=== PATIENT | female | born 1950 | race Caucasian/White ===

== ENCOUNTER 2017-02-20 13:09 | Outpatient (CLI) | payer OTHER ==
--- NOTE | 2017-02-20 13:50 | DIAGNOSTIC IMAGING REPORT ---
PROCEDURE: DEXA BONE DENSITY STUDY CLINICAL INDICATION: SCREENING FOR OSTEOPOROSIS COMPARISON: None. FINDINGS: LUMBAR SPINE: Bone mineral density 1.124 g/cm2, T score 0.7 normal LEFT HIP: Bone mineral density 1.134 g/cm2, T score 1.6 normal LEFT FEMORAL NECK: Bone mineral density 0.983 g/cm2, T score 1.2 normal FRACTURE RISK CALCULATION ( when applicable): 10-year fracture risk of a major osteoporotic fracture and of a hip fracture not reported because all T-scores at or above -1.0 (T score greater or equal to -1.0 to: NORMAL) (T score from -1.1 to -2.4: OSTEOPENIA) (T score ess than or equal to -2.5: OSTEOPOROSIS) IMPRESSION: 1. Normal spine hip and femoral neck
--- NOTE | 2017-02-20 14:23 | DIAGNOSTIC IMAGING REPORT ---
PROCEDURE: MG BILATERAL SCREENING W/CAD INDICATION: SCREENING TECHNIQUE: Bilateral CC and MLO digital views. COMPARISON: Compared to 01/19/2016, 01/12/2015, and 01/13/2014. FINDINGS: Computer-aided detection applied. Mildly dense. No change. IMPRESSION: 1. Negative mammogram. RESULT CODE: 1- Negative. A. A negative report should not delay biopsy if a dominant or clinically suspicious mass is present. 10-15% of cancers are not identified by x-ray. B. A negative report may reinforce clinical impression. C. Adenosis and dense breasts may obscure an underlying neoplasm. D. False positive reports average 6-10%. E.. A yearly screening mammogram is recommended. A reminder letter will be scheduled.
== END 2017-02-20 23:00 ==
LOC: MAM SRH 13:09
DX: Z13.820 Encounter for screening for osteoporosis (principal); Z12.31 Encounter for screening mammogram for malignant neoplasm of breast

== ENCOUNTER 2017-03-02 20:26 | Emergency (ER) | payer OTHER ==
--- NOTE | 2017-03-02 23:20 | ED CLINICAL REPORT ---
Clinical Report - Physicians/Mid Levels [facility] [address] [place] [address] 03/02/2017 20:26 Patient: MEGHNA ESTEVEZ Time Seen: 20:40. Arrived- By private vehicle. Historian- patient and family. HISTORY OF PRESENT ILLNESS Chief Complaint: CHEST PAIN. At its maximum, severity described as moderate. When seen in the E.D., severity described as moderate. Modifying factors- worsened by cough and deep breaths. Not relieved by anything. It is described as located in the central chest area and radiating (back). No nausea, vomiting, difficulty breathing or diaphoresis. Similar symptoms previously: Many times. Recent medical care: Not recently seen/assessed. REVIEW OF SYSTEMS No fever, chills, cough, pedal edema or calf pain. All systems otherwise negative, except as recorded above. PAST HISTORY Esphageal spam History of pulmonary resection for cancer. Medications: Calcium 600 + D Oral. Multivitamin & Mineral Oral. Omeprazole Oral 10 mg, daily. Acyclovir Oral, daily. Allergies: No Known Drug Allergy. SOCIAL HISTORY Never smoker. Occasional alcohol use. No drug use. ADDITIONAL NOTES The nursing notes have been reviewed. PHYSICAL EXAM Vital Signs: 03/02/2017 20:34 BP: 123/64. HR: 62. RR: 25. O2 saturation: 100%. Temp: 97.2 F. Pain level now: 8/10. Have been reviewed. Blood pressure normal. Heart rate normal. Tachypneic. Temperature normal. Oxygen saturation normal. Appearance: Alert. Oriented X3. Appears to be in pain. Eyes: Eyes normal inspection. ENT: Pharynx normal. Neck: Normal inspection. CVS: Normal heart rate and rhythm. Heart sounds normal. Respiratory: No respiratory distress. Breath sounds normal. Chest nontender. Back: Moderate soft-tissue tenderness in the left mid thoracic area. No vertebral point tenderness. Skin: Skin warm and dry. Normal skin color. Extremities: No calf tenderness. No lower extremity edema. Neuro: Oriented X 3. LABS, X-RAYS, AND EKG Chest X-ray: No acute disease. Borderline cardiomegaly. No infiltrate. (Prior L lobectomy). Views: AP. Technique: good. The X-rays were independently viewed by me and interpreted contemporaneously by me. A comparison with prior films reveals that the findings are unchanged. Interpretation time: 22:18. Laboratory Tests: CBC w Diff: (NICK: 03/02/2017 20:58) ( [facility]13) Final results Test Result Flag Units (Reference) WHITE BLOOD COUNT 10.6 K/uL (4.5-11.5) RED BLOOD COUNT 3.86 L M/uL (4.00-5.20) HEMOGLOBIN 12.0 gm/dL (12.0-16.0) HEMATOCRIT 35.7 L % (36.0-46.0) MEAN CELL VOLUME 92 fL (80-100) MEAN CORPUSCULAR HGB 31 pg (26-34) MEAN CORPUSCULAR HGB CONC 34 g/dL (31-37) RED CELL DISTRIBUTION WIDTH 13.4 % (11.6-14.8) PLATELET COUNT 205 K/uL (150-400) NEUTROPHIL % 81.8 H % (50-75) LYMPH % 10.0 L % (25-40) MONO % 6.9 % (3-14) EOSINOPHIL % 1.0 % (0-4) BASOPHIL % 0.3 % (0-2) PT with INR: (NICK: 03/02/2017 20:58) ( [facility] 21:17) Final results Test Result Flag Units (Reference) INR 0.9 (0.8-1.2) Low Intensity Therapy: INR 1.5-2.0 PT range 18.5-23.1Mod.Intensity Therapy: INR 2.0-3.0 PT range 23.1-31.5High Intensity Therapy: INR 2.5-3.5 PT range 27.4-35.5High Intensity Therapy 2: INR 3.0-4.0 PT range 31.5-39.3 D-DIMER QUANTITATIVE 0.31 ug/mLFEU (0.27-0.52) The primary value of this quantitative assay relates toits negative predictive value (i.e. exclusion) of pulmonaryembolism/deep vein thrombosis/DIC.Elevated levels of d-dimer may also occur with:, age, cancer, inflammation, liver disease,post-op, infection, hematoma, coronary disease, peripheralarteriopathy, bleeding disorders and thrombolytic treatment.Results should be correlated with other clinical andradiological data.Testing Methodology: Latex Immunoassay BNP: (NICK: 03/02/2017 20:58) ( [facility] 03/02/2017 21:31) Final results Test Result Flag Units (Reference) B-TYPE NATRIURETIC PEPTIDE 21.8 pg/ml (5-100) CHEM 13 PANEL: (NICK: 03/02/2017 20:58) ( [facility] 03/02/2017 21:25) Final results Test Result Flag Units (Reference) GLUCOSE 156 H mg/dL (70-110) BUN 23 H mg/dL (7-18) CREATININE 1.0 mg/dL (0.6-1.3) Estimated GFR 59.14 mL/min Estimated GFR- >60 mL/min Note: Persistent reduction over 3 months in eGFR<60 mL/min/1.73 m2 defines CKD. Patients with eGFR values>=60 mL/min/1.73 m2 may also have CKD if evidence ofpersistent proteinuria. Additional information may be foundat www.kidney.org. SODIUM 140 mmol/L (136-145) POTASSIUM 3.5 mmol/L (3.5-5.1) CHLORIDE 104 mmol/L (98-107) CARBON DIOXIDE 24 mmol/L (21-32) CALCIUM 9.1 mg/dL (8.5-10.1) TOTAL PROTEIN 7.2 g/dL (6.4-8.2) ALBUMIN 3.8 g/dL (3.3-5.0) BILIRUBIN, TOTAL 0.4 mg/dL (0.0-1.0) ALKALINE PHOSPHATASE 73 U/L (46-116) AST (SGOT) 32 U/L (15-37) ALT (SGPT) 32 U/L (12-78) MAGNESIUM 1.8 mg/dL (1.8-2.4) CPK 99 U/L (24-260) TROPONIN I <0.05 L ng/mL (0.00-1.5) TROPONIN REFERENCE RANGE:<0.1 NEGATIVE0.1-1.5 INDETERMINANT>1.5 POSITIVE . PROGRESS AND PROCEDURES Course of Care: 21:41 03/02/17. Care transferred to Dr Diego due to end of shift. Pt and Dr Diego are aware. /Berlin Son MD. Disposition: Discharged home in good and improved condition. Condition: good. CLINICAL IMPRESSION Muscle strain of the mid back. INSTRUCTIONS No lifting greater than 10 lbs until well. Your Current Medications: CONTINUE TAKING THE FOLLOWING MEDICATIONS: Acyclovir Oral : daily. Calcium 600 + D Oral. Multivitamin & Mineral Oral. Omeprazole Oral : 10 mg daily. Prescription Medications: Diclofenac 50 mg tablets: take 1 tablet orally every 6 hours as needed for pain or stiffness. Dispense thirty (30). No refill. Lidoderm 5% patch Apply BID Disp #30 No refills. Follow-up: Follow up with your doctor in about three days. Call for an appointment. Screening today revealed the patient's blood pressure to be in the normal range. (Electronically signed by Wiley Diego Dr. 03/03/2017 4:40)
--- NOTE | 2017-03-02 23:20 | ED CLINICAL REPORT ---
Clinical Report - Physicians/Mid Levels [facility] [address] [place] [address] 03/02/2017 20:26 Patient: MEGHNA ESTEVEZ Time Seen: 20:40. Arrived- By private vehicle. Historian- patient and family. HISTORY OF PRESENT ILLNESS Chief Complaint: CHEST PAIN. At its maximum, severity described as moderate. When seen in the E.D., severity described as moderate. Modifying factors- worsened by cough and deep breaths. Not relieved by anything. It is described as located in the central chest area and radiating (back). No nausea, vomiting, difficulty breathing or diaphoresis. Similar symptoms previously: Many times. Recent medical care: Not recently seen/assessed. REVIEW OF SYSTEMS No fever, chills, cough, pedal edema or calf pain. All systems otherwise negative, except as recorded above. PAST HISTORY Esphageal spam History of pulmonary resection for cancer. Medications: Calcium 600 + D Oral. Multivitamin & Mineral Oral. Omeprazole Oral 10 mg, daily. Acyclovir Oral, daily. Allergies: No Known Drug Allergy. SOCIAL HISTORY Never smoker. Occasional alcohol use. No drug use. ADDITIONAL NOTES The nursing notes have been reviewed. PHYSICAL EXAM Vital Signs: 03/02/2017 20:34 BP: 123/64. HR: 62. RR: 25. O2 saturation: 100%. Temp: 97.2 F. Pain level now: 8/10. Have been reviewed. Blood pressure normal. Heart rate normal. Tachypneic. Temperature normal. Oxygen saturation normal. Appearance: Alert. Oriented X3. Appears to be in pain. Eyes: Eyes normal inspection. ENT: Pharynx normal. Neck: Normal inspection. CVS: Normal heart rate and rhythm. Heart sounds normal. Respiratory: No respiratory distress. Breath sounds normal. Chest nontender. Back: Moderate soft-tissue tenderness in the left mid thoracic area. No vertebral point tenderness. Skin: Skin warm and dry. Normal skin color. Extremities: No calf tenderness. No lower extremity edema. Neuro: Oriented X 3. LABS, X-RAYS, AND EKG Chest X-ray: No acute disease. Borderline cardiomegaly. No infiltrate. (Prior L lobectomy). Views: AP. Technique: good. The X-rays were independently viewed by me and interpreted contemporaneously by me. A comparison with prior films reveals that the findings are unchanged. Interpretation time: 22:18. Laboratory Tests: CBC w Diff: (NICK: 03/02/2017 20:58) ( [facility] 03/02/2017 21:13) Final results Test Result Flag Units (Reference) WHITE BLOOD COUNT 10.6 K/uL (4.5-11.5) RED BLOOD COUNT 3.86 L M/uL (4.00-5.20) HEMOGLOBIN 12.0 gm/dL (12.0-16.0) HEMATOCRIT 35.7 L % (36.0-46.0) MEAN CELL VOLUME 92 fL (80-100) MEAN CORPUSCULAR HGB 31 pg (26-34) MEAN CORPUSCULAR HGB CONC 34 g/dL (31-37) RED CELL DISTRIBUTION WIDTH 13.4 % (11.6-14.8) PLATELET COUNT 205 K/uL (150-400) NEUTROPHIL % 81.8 H % (50-75) LYMPH % 10.0 L % (25-40) MONO % 6.9 % (3-14) EOSINOPHIL % 1.0 % (0-4) BASOPHIL % 0.3 % (0-2) PT with INR: (NICK: 03/02/2017 20:58) ( [facility] 03/02/2017 21:17) Final results Test Result Flag Units (Reference) INR 0.9 (0.8-1.2) Low Intensity Therapy: INR 1.5-2.0 PT range 18.5-23.1Mod.Intensity Therapy: INR 2.0-3.0 PT range 23.1-31.5High Intensity Therapy: INR 2.5-3.5 PT range 27.4-35.5High Intensity Therapy 2: INR 3.0-4.0 PT range 31.5-39.3 D-DIMER QUANTITATIVE 0.31 ug/mLFEU (0.27-0.52) The primary value of this quantitative assay relates toits negative predictive value (i.e. exclusion) of pulmonaryembolism/deep vein thrombosis/DIC.Elevated levels of d-dimer may also occur with:, age, cancer, inflammation, liver disease,post-op, infection, hematoma, coronary disease, peripheralarteriopathy, bleeding disorders and thrombolytic treatment.Results should be correlated with other clinical andradiological data.Testing Methodology: Latex Immunoassay BNP: (NICK: 03/02/2017 20:58) ( [facility] 03/02/2017 21:31) Final results Test Result Flag Units (Reference) B-TYPE NATRIURETIC PEPTIDE 21.8 pg/ml (5-100) CHEM 13 PANEL: (NICK: 03/02/2017 20:58) ( [facility] 03/02/2017 21:25) Final results Test Result Flag Units (Reference) GLUCOSE 156 H mg/dL (70-110) BUN 23 H mg/dL (7-18) CREATININE 1.0 mg/dL (0.6-1.3) Estimated GFR 59.14 mL/min Estimated GFR- >60 mL/min Note: Persistent reduction over 3 months in eGFR<60 mL/min/1.73 m2 defines CKD. Patients with eGFR values>=60 mL/min/1.73 m2 may also have CKD if evidence ofpersistent proteinuria. Additional information may be foundat www.kidney.org. SODIUM 140 mmol/L (136-145) POTASSIUM 3.5 mmol/L (3.5-5.1) CHLORIDE 104 mmol/L (98-107) CARBON DIOXIDE 24 mmol/L (21-32) CALCIUM 9.1 mg/dL (8.5-10.1) TOTAL PROTEIN 7.2 g/dL (6.4-8.2) ALBUMIN 3.8 g/dL (3.3-5.0) BILIRUBIN, TOTAL 0.4 mg/dL (0.0-1.0) ALKALINE PHOSPHATASE 73 U/L (46-116) AST (SGOT) 32 U/L (15-37) ALT (SGPT) 32 U/L (12-78) MAGNESIUM 1.8 mg/dL (1.8-2.4) CPK 99 U/L (24-260) TROPONIN I <0.05 L ng/mL (0.00-1.5) TROPONIN REFERENCE RANGE:<0.1 NEGATIVE0.1-1.5 INDETERMINANT>1.5 POSITIVE . PROGRESS AND PROCEDURES Course of Care: 21:41 03/02/17. Care transferred to Dr Diego due to end of shift. Pt and Dr Diego are aware. /Berlin Son MD. Disposition: Discharged home in good and improved condition. Condition: good. CLINICAL IMPRESSION Muscle strain of the mid back. INSTRUCTIONS No lifting greater than 10 lbs until well. Your Current Medications: CONTINUE TAKING THE FOLLOWING MEDICATIONS: Acyclovir Oral : daily. Calcium 600 + D Oral. Multivitamin & Mineral Oral. Omeprazole Oral : 10 mg daily. Prescription Medications: Diclofenac 50 mg tablets: take 1 tablet orally every 6 hours as needed for pain or stiffness. Dispense thirty (30). No refill. Lidoderm 5% patch Apply BID Disp #30 No refills. Follow-up: Follow up with your doctor in about three days. Call for an appointment. Screening today revealed the patient's blood pressure to be in the normal range. (Electronically signed by Wiley Diego Dr. 03/03/2017 4:40)
--- NOTE | 2017-03-02 23:21 | ED ORDER SUMMARY ---
..... Patient: MEGHNA ESTEVEZ OrderSheet [facility] VisitID: [id number] [place] [address] 66y, F Registration Date/Time: 03/02/2017 ORDER SHEET Weight: Allergies: No Known Drug Allergy GENERAL ORDERS: Chest 1V Urgent (20:47 03/02/2017 Suma PAUL) (Ack 20:54 Reshma) (20:56 RFay) Atmospheric Technician (Continuous) (20:48 03/02/2017 Suma PAUL) (21:49 CHagerty ER Costume Seamstress) PT with INR Urgent (20:48 03/02/2017 Suma PAUL) (Ack 20:54 Reshma) (22:40 CHagerty ER Costume Seamstress) (22:40 JQuivey R.N.) Cardiac Panel Stat (20:48 03/02/2017 Suma PAUL) (Ack 20:54 Reshma) (22:40 CHagerty ER Costume Seamstress) (22:40 JQuivey R.N.) BNP Urgent (20:48 03/02/2017 Suma PAUL) (Ack 20:54 Reshma) (22:40 CHagerty ER Costume Seamstress) (22:40 JQuivey R.N.) D-Dimer Urgent (20:48 03/02/2017 Suma PAUL) (Ack 20:54 Reshma) (22:40 CHagerty ER Costume Seamstress) (22:40 JQuivey R.N.) Oxygen (2 L/min) (NC) (20:48 03/02/2017 Suma PAUL) (21:50 CHagerty ER Costume Seamstress) Pulse oximeter (20:48 03/02/2017 Suma PAUL) (21:49 CHagerty ER Costume Seamstress) EKG - ER Stat (20:48 03/02/2017 Suma PAUL) (20:49 DDavis R.N.) MEDICATION ORDERS: NitroGLYCERIN SL 0.4 mg (NOW) (20:46 03/02/2017 Suma PAUL) (21:04 SSambou R.N.) Aspirin PO 325 mg (NOW) (20:53 03/02/2017 Suma PAUL) (21:07 SSambou R.N.) IV FLUIDS: Morphine IV 2 mg + 2 mg (NOW) (20:47 03/02/2017 Suma PAUL) (21:06 Tevin Winter) IV Saline Lock (20:48 03/02/2017 Suma PAUL) (21:07 Tevin Slade.Thien) Toradol IV 30 mg (NOW) (23:01 03/02/2017 Dejah Keating) ORDER SHEET NOTES: [Electronically signed by Sheriff Moy Jarrett (23:53 03/02/2017)] [Electronically signed by Wiley Diego Dr. (04:40 03/03/2017)] [Electronically locked/signed by Sheriff Moy Jarrett (23:53 03/02/2017)]
--- NOTE | 2017-03-02 23:21 | ED NURSING NOTES ---
Clinical Report - [facility] [address] [place] [address] 03/02/2017 20:26 Patient: MEGHNA ESTEVEZ TRIAGE Triage time 20:34. Chief Complaint: CHEST PAIN. --20:41 Sheriff Jarrett R.N. 20:34 03/02/17. BP: 123/64. HR: 62. RR: 25. O2 saturation: 100%. Temp: 97.2 F. Pain level now: 05/16. --20:41 Sheriff Jarrett R.N. Medications Acyclovir Oral, daily. --20:36 Sheriff Jarrett R.N. Omeprazole Oral 10 mg, daily. --20:36 Sheriff Jarrett R.N. Multivitamin & Mineral Oral. --20:37 Sheriff Jarrett R.N. Calcium 600 + D Oral. --20:37 Sheriff Jarrett R.N. Allergies No Known Drug Allergy. --20:37 Sheriff Jarertt R.N. History Arrived by private vehicle, and accompanied by family. Onset. (2 1/2 hours ago). ( Took nitroglycerin 0.4 mg PO x 4.). PAST MEDICAL HX: Immunizations: up-to-date. Denies current : Menopause. SURGERY HX: Cholecystectomy. Had hysterectomy. ( Left lower lobe lobectomy.). SOCIAL HX: Never smoker. Occasional alcohol use. No drug use. No infectious disease exposure. FALL RISK ASSESSMENT: Fall risk assessment completed. No fall risk identified. NUTRITIONAL RISK ASSESSMENT: The nutritional risk assessment revealed no deficiencies. FUNCTIONAL ASSESSMENT: Functional assessment: no impairments noted. LEARNING NEEDS ASSESSMENT: The learning needs assessment revealed no barriers. --20:41 Sheriff Jarrett R.N. PROBLEMS: Unstable Angina. Chest Pain. Lung Cancer. --20:37 Sheriff Jarrett R.N. Interventions ID band on patient. --20:41 Sheriff Jarrett R.N. PHYSICAL ASSESSMENT Ambulatory to room. Patient gowned. GENERAL / NEURO / PSYCH: Alert. Oriented X 4. Appears in pain and anxious. HEENT: Mucous membranes are pink. RESPIRATORY: Respirations not labored. CVS: Pulses within normal limits. Capillary refill less than 2 seconds. SKIN: Skin is warm and dry. Normal skin turgor. --20:41 Sheriff Jarrett R.N. NURSING PROGRESS NOTES Head of bed elevated. Two patient identifiers checked. Call light placed in reach. Side rails up x 2. Bed placed in lowest position. Brakes of bed on. --20:41 Sheriff Jarrett R.N. 20:46 03/02/17. BP: 107/50 (regular adult cuff) taken on the left arm, via an automated monitor, while sitting. --20:46 Sheriff Jarrett R.N. 20:46 03/02/17. BP: 101/65 (regular adult cuff) taken on the right arm, via an automated monitor, while sitting. --20:47 Sheriff Jarrett R.N. EKG time: (2039). EKG was ordered, performed by a tech and shown to the ED physician. --20:56 Chino Perdomo, ER Medical Educator 20:52 03/02/2017 Site #2 started via IV in the right antecubital space with an 20g angiocath, with aseptic technique and good blood return; one attempt. Blood drawn: rainbow set. Labeled in the presence of the patient. Saline lock flushed with 10 mL saline. --21:07 Sheriff Jarrett R.N. 21:04 03/02/2017 Nitroglycerin SL 0.4 mg given. Allergies verified and confirmed 5 rights. --21:04 Sheriff Jarrett R.N. 21:06 03/02/2017 Site #1 started via IV in the right with an 20g angiocath, with aseptic technique and good blood return; one attempt. Blood drawn: rainbow set. Labeled in the presence of the patient. Saline lock flushed with 10 mL saline. --21:06 Sheriff Jarrett R.N. 21:06 03/02/2017 Morphine IVP 2 mg given. via site #1. IV patency established. IV site checked: no pain, redness, or swelling. IV flushed thoroughly pre- and post-medication administration. IVP given by RN. --21:06 Sheriff Jarrett R.N. 21:07 03/02/2017 Aspirin PO 325 mg given. Allergies verified and confirmed 5 rights. --21:07 Sheriff Jarrett R.N. ( 2100: Report received from HAI Spangler for his lunch break.). --21:25 Cory Hunter R.N. ( Patient states that her chest pain is lower since she was given pain medications. She states that she "had 4 nitro" just before she arrived.). --21:28 Cory Hunter R.N. ( Report given to HAI Spangler (he returned from lunch).). --21:34 Cory Hunter R.N. DISPOSITION / DISCHARGE Condition at departure: stable. No learning barriers present. Discharge instructions provided and reviewed with the patient. Reviewed medication(s) side effects, precautions, dosing and course information. Prescription(s) given to the patient. Work note given. Patient verbalized understanding. Written instructions provided in Tajik. The patient was discharged by the physician. She was discharged home and accompanied by spouse. She left the Emergency Department ambulatory and via private vehicle. Spouse driving. --23:53 Sheriff Jarrett R.N. 23:40 03/02/17. BP: 115/49. HR: 55. RR: 18. O2 saturation: 99%. Temp: 98.4 F. Pain level now: 11/16. --23:53 Sheriff Jarrett R.N. Locked/Released at 03/02/2017 23:53 by Sheriff Jarrett R.N.
--- NOTE | 2017-03-02 23:21 | ED ORDER SUMMARY ---
..... Patient: MEGHNA ESTEVEZ OrderSheet [facility] VisitID: [id number] [place] [address] 66y, F Registration Date/Time: 03/02/2017 ORDER SHEET Weight: Allergies: No Known Drug Allergy GENERAL ORDERS: Chest 1V Urgent (20:47 03/02/2017 Suma PAUL) (Ack 20:54 Reshma) (20:56 RFay) Brake Reliner (Continuous) (20:48 03/02/2017 Suma PAUL) (21:49 CHagerty ER Typesetter Apprentice) PT with INR Urgent (20:48 03/02/2017 Suma PAUL) (Ack 20:54 Reshma) (22:40 CHagerty ER Typesetter Apprentice) (22:40 JQuivey R.N.) Cardiac Panel Stat (20:48 03/02/2017 Suma PAUL) (Ack 20:54 Reshma) (22:40 CHagerty ER Typesetter Apprentice) (22:40 JQuivey R.N.) BNP Urgent (20:48 03/02/2017 Suma PAUL) (Ack 20:54 Reshma) (22:40 CHagerty ER Typesetter Apprentice) (22:40 JQuivey R.N.) D-Dimer Urgent (20:48 03/02/2017 Suma PAUL) (Ack 20:54 Reshma) (22:40 CHagerty ER Typesetter Apprentice) (22:40 JQuivey R.N.) Oxygen (2 L/min) (NC) (20:48 03/02/2017 Suma PAUL) (21:50 CHagerty ER Typesetter Apprentice) Pulse oximeter (20:48 03/02/2017 Suma PAUL) (21:49 CHagerty ER Typesetter Apprentice) EKG - ER Stat (20:48 03/02/2017 Suma PAUL) (20:49 DDavis R.N.) MEDICATION ORDERS: NitroGLYCERIN SL 0.4 mg (NOW) (20:46 03/02/2017 Suma PAUL) (21:04 SSambou R.N.) Aspirin PO 325 mg (NOW) (20:53 03/02/2017 Suma PAUL) (21:07 SSambou R.N.) IV FLUIDS: Morphine IV 2 mg + 2 mg (NOW) (20:47 03/02/2017 Suma PAUL) (21:06 Tevin Winter) IV Saline Lock (20:48 03/02/2017 Suma PAUL) (21:07 Tevin Slade.Thien) Toradol IV 30 mg (NOW) (23:01 03/02/2017 Dejah Keating) ORDER SHEET NOTES: [Electronically signed by Sheriff Moy Jarrett (23:53 03/02/2017)] [Electronically signed by Wiley Diego Dr. (04:40 03/03/2017)] [Electronically locked/signed by Sheriff Moy Jarrett (23:53 03/02/2017)]
--- NOTE | 2017-03-03 04:41 | ED MED RECONCILIATION SUMMARY ---
Patient: MEGHNA ESTEVEZ Medication Reconciliation Report [facility] VisitID: [id number] [place] [address] 66y, F Registration Date/Time: 03/02/2017 Weight: (not available) Height/Length: (not available) BMI: (not available) ALLERGIES: No Known Drug Allergy The patient's Home Medications are listed below: CONTINUE TAKING THE FOLLOWING MEDICATIONS: Acyclovir Oral, daily Calcium 600 + D Oral Multivitamin & Mineral Oral Omeprazole Oral 10 mg, daily The source(s) of the original Home Medication information: Not obtained. The following Medications were given to the patient in the Emergency Department: Nitroglycerin [SL] SL 0.4 mg, administered: 03/02/2017 9:04:00 PM Morphine [IVP] IVP 2 mg, administered: 03/02/2017 9:06:00 PM Aspirin [PO] PO 325 mg, administered: 03/02/2017 9:07:00 PM The following Medications were prescribed to the patient: Lidoderm 5% patchApply BIDDisp #30No refills. -- Wiley Diego Dr. Diclofenac 50 mg tablets: take 1 tablet orally every 6 hours as needed for pain or stiffness. Dispense thirty (30). No refill. -- Wiley Diego Dr.
--- NOTE | 2017-03-03 04:41 | ED MAR SUMMARY ---
..... Medication Administration Record [facility] [address] [place] [address] Patient: MEGHNA ESTEVEZ Visit ID: [id number] 66y, F Weight: (not available) Height/Length: (not available) BMI: (not available) ALLERGIES: No Known Drug Allergy Given 21:04 03/02/2017 Sheriff Luiza RLuigiNLuigi Medication Administered: NITROGLYCERIN [SL], Dose: 0.4 mg SL. Medication Ordered: NitroGLYCERIN SL 0.4 mg (NOW). Given 21:06 03/02/2017 Sheriff Luiza RLuigiNLuigi Medication Administered: MORPHINE [IVP], Dose: 2 mg IVP, Site: #1 right. Medication Ordered: Morphine IV 2 mg + 2 mg (NOW). Given 21:07 03/02/2017 Sheriff Luiza RLuigiN. Medication Administered: ASPIRIN [PO], Dose: 325 mg PO. Medication Ordered: Aspirin PO 325 mg (NOW).
--- NOTE | 2017-03-03 04:41 | ED MED RECONCILIATION SUMMARY ---
Patient: MEGHNA ESTEVEZ Medication Reconciliation Report [facility] VisitID: [id number] [place] [address] 66y, F Registration Date/Time: 03/02/2017 Weight: (not available) Height/Length: (not available) BMI: (not available) ALLERGIES: No Known Drug Allergy The patient's Home Medications are listed below: CONTINUE TAKING THE FOLLOWING MEDICATIONS: Acyclovir Oral, daily Calcium 600 + D Oral Multivitamin & Mineral Oral Omeprazole Oral 10 mg, daily The source(s) of the original Home Medication information: Not obtained. The following Medications were given to the patient in the Emergency Department: Nitroglycerin [SL] SL 0.4 mg, administered: 03/02/2017 9:04:00 PM Morphine [IVP] IVP 2 mg, administered: 03/02/2017 9:06:00 PM Aspirin [PO] PO 325 mg, administered: 03/02/2017 9:07:00 PM The following Medications were prescribed to the patient: Lidoderm 5% patchApply BIDDisp #30No refills. -- Wiley Diego Dr. Diclofenac 50 mg tablets: take 1 tablet orally every 6 hours as needed for pain or stiffness. Dispense thirty (30). No refill. -- Wiley Diego Dr.
--- NOTE | 2017-03-03 04:41 | ED MAR SUMMARY ---
..... Medication Administration Record [facility] [address] [place] [address] Patient: MEGHNA ESTEVEZ Visit ID: [id number] 66y, F Weight: (not available) Height/Length: (not available) BMI: (not available) ALLERGIES: No Known Drug Allergy Given 21:04 03/02/2017 Sheriff Luiza RLuigiNLuigi Medication Administered: NITROGLYCERIN [SL], Dose: 0.4 mg SL. Medication Ordered: NitroGLYCERIN SL 0.4 mg (NOW). Given 21:06 03/02/2017 Sheriff Luiza RLuigiNLuigi Medication Administered: MORPHINE [IVP], Dose: 2 mg IVP, Site: #1 right. Medication Ordered: Morphine IV 2 mg + 2 mg (NOW). Given 21:07 03/02/2017 Sheriff Luiza RLuigiN. Medication Administered: ASPIRIN [PO], Dose: 325 mg PO. Medication Ordered: Aspirin PO 325 mg (NOW).
--- NOTE | 2017-03-03 04:41 | ED DISCHARGE INSTRUCTIONS ---
Patient: MEGHNA ESTEVEZ General Instructions [facility] VisitID: [id number] [place] [address] 66y, F Registration Date/Time: 03/02/2017 Muscle strain of the mid back. INSTRUCTIONS No lifting greater than 10 lbs until well. Your Current Medications: CONTINUE TAKING THE FOLLOWING MEDICATIONS: Acyclovir Oral : daily. Calcium 600 + D Oral. Multivitamin & Mineral Oral. Omeprazole Oral : 10 mg daily. Prescription Medications: Diclofenac 50 mg tablets: take 1 tablet orally every 6 hours as needed for pain or stiffness. Dispense thirty (30). No refill. Lidoderm 5% patch Apply BID Disp #30 No refills. Follow-up: Follow up with your doctor in about three days. Call for an appointment. Screening today revealed the patient's blood pressure to be in the normal range. ADDITIONAL INFORMATION Back Pain [Acute Or Chronic] Back pain is usually caused by an injury to the muscles or ligaments of the spine. Sometimes the disks that separate each bone in the spine may bulge and cause pain by pressing on a nearby nerve. Back pain may also appear after a sudden twisting/bending force (such as in a car accident), after a simple awkward movement, or lifting something heavy with poor body positioning. In either case, muscle spasm is often present and adds to the pain. Acute back pain usually gets better in one to two weeks. Back pain related to disk disease, arthritis in the spinal joints or spinal stenosis (narrowing of the spinal canal) can become chronic and last for months or years. Unless you had a physical injury (for example, a car accident or fall) X-rays are usually not ordered for the initial evaluation of back pain. If pain continues and does not respond to medical treatment, x-rays and other tests may be performed at a later time. Home Care: You may need to stay in bed the first few days. But, as soon as possible, begin sitting or walking to avoid problems with prolonged bed rest (muscle weakness, worsening back stiffness and pain, blood clots in the legs). When in bed, try to find a position of comfort. A firm mattress is best. Try lying flat on your back with pillows under your knees. You can also try lying on your side with your knees bent up towards your chest and a pillow between your knees. Avoid prolonged sitting. This puts more stress on the lower back than standing or walking. During the first two days after injury, apply an ICE PACK to the painful area for 20 minutes every 2-4 hours. This will reduce swelling and pain. HEAT (hot shower, hot bath or heating pad) works well for muscle spasm. You can start with ice, then switch to heat after two days. Some patients feel best alternating ice and heat treatments. Use the one method that feels the best to you. You may use acetaminophen (Tylenol) or ibuprofen (Motrin, Advil) to control pain, unless another pain medicine was prescribed. [NOTE: If you have chronic liver or kidney disease or ever had a stomach ulcer or GI bleeding, talk with your doctor before using these medicines.] Be aware of safe lifting methods and do not lift anything over 15 pounds until all the pain is gone. Follow Up with your doctor or this facility if your symptoms do not start to improve after one week. Physical therapy may be needed. [NOTE: If X-rays were taken, they will be reviewed by a radiologist. You will be notified of any new findings that may affect your care.] Get Prompt Medical Attention if any of the following occur: Pain becomes worse or spreads to your legs Weakness or numbness in one or both legs Loss of bowel or bladder control Numbness in the groin or genital area You have been given the following additional information: Back Pain (Acute Or Chronic) No lifting greater than 10 lbs until well. (Electronically signed by Wiley Diego Dr. 03/03/2017 4:40)
--- NOTE | 2017-03-03 17:56 | DIAGNOSTIC IMAGING REPORT ---
PROCEDURE: XR CHEST 1 VIEW INDICATION: CHEST PAIN TECHNIQUE: Single view chest. 2055 hours COMPARISON: 07/23/2014 FINDINGS: Stable heart size. Surgical clips left infrahilar region. Volume loss of the left lower lobectomy. The visible lung esquivel are clear without consolidation, effusion, or pneumothorax. Intact osseous structures with osteophytosis throughout the spine. IMPRESSION: 1. No acute process. 2. status post left lower lobectomy.
== END 2017-03-02 23:43 | disposition home or self-care (01) ==
LOC: ED SRH 20:26
DX: S29.012A Strain of muscle and tendon of back wall of thorax, initial encounter (principal); X58.XXXA Exposure to other specified factors, initial encounter; Y93.9 Activity, unspecified; Y92.9 Unspecified place or not applicable; Y99.9 Unspecified external cause status; Z79.899 Other long term (current) drug therapy
CPT/HCPCS: 90074; 90100; 90616; 91320; 91556; 92610; 92720; 94060; 95059